=== PATIENT | male | born 1995 | race Caucasian/White ===

== ENCOUNTER 2020-03-01 05:48 | Emergency (ER) | payer MEDICAID ==
[~2020-03-01] VITALS: Ht 170.2 cm; Wt 67.1 kg
--- NOTE | 2020-03-01 06:04 | NUR ---
BIBS FOR C/O SOB. PER PT IT "KIND OF STARTED 2 YRS AGO" BUT WORSENING TODAY. - COUGH, SATTING 99-100% ON R/A, LUNG SOUNDS: CLEAR. AFEBRILE, PT AMBULATORY TO BED 6, WAS PLACED ON A MONITOR, VSS. WILL CONT TO MONITOR,
--- NOTE | 2020-03-01 06:15 | NUR ---
AT BED SIDE
--- NOTE | 2020-03-01 06:41 | NUR ---
Pt is medically stable for d.c. Patient discharged to home in stable condition. Written and verbal after care instructions given. Patient verbalizes understanding of instruction.
[2020-03-01 06:42] VITALS: BP 128/87
== END 2020-03-01 06:43 | disposition home or self-care (01) ==
LOC: ER 05:51
DX: R06.02 Shortness of breath (principal); F17.210 Nicotine dependence, cigarettes, uncomplicated

== ENCOUNTER 2020-03-17 10:54 | Emergency (ER) | payer MEDICAID ==
[~2020-03-17] VITALS: Ht 170.2 cm; Wt 72.6 kg
[2020-03-17 11:01] VITALS: BP 151/93
== END 2020-03-17 12:03 | disposition home or self-care (01) ==
LOC: ER 10:57
DX: R06.02 Shortness of breath (principal); F41.9 Anxiety disorder, unspecified; R00.2 Palpitations; Z76.0 Encounter for issue of repeat prescription